=== PATIENT | female | born 1960 | race Caucasian/White ===

== ENCOUNTER 2017-10-25 14:35 | Outpatient (CLI) | payer BC | END 2017-10-25 14:36 | disposition home or self-care (01) | LOC: BICMAMMO 14:35 | PROVIDERS: ATTEND Obstetrics & Gynecology | DX: Z12.31 Encounter for screening mammogram for malignant neoplasm of breast (principal); Z80.3 Family history of malignant neoplasm of breast | CPT/HCPCS: 77063; 77067 ==

== ENCOUNTER 2019-08-08 14:03 | Outpatient (CLI) | payer BC ==
--- NOTE | 2019-08-08 15:05 | BD ---
EXAM: DEXA bone density examination HISTORY: 59-year-old postmenopausal female for screening COMPARISON: None FINDINGS: L1--bone mineral density 1.128 g/sq cm; T score 1.3 L2--bone mineral density 1.317 g/sq cm; T score 2.6 L3--bone mineral density 1.359 g/sq cm; T score 2.5 L4--bone mineral density 1.462 g/sq cm; T score 3.6 Total L1-L4--bone mineral density 1.320 g/sq cm; T score 2.5 Left femoral neck--bone mineral density1.049; T score 1.8 Total proximal left femur--bone mineral density 1.235; T score 2.4 IMPRESSION: Normal bone mineral density.
--- NOTE | 2019-08-08 16:15 | MMO ---
Bilateral MAMMO Bilat Screen [facility]. CLINICAL HISTORY: Patient is 59 years old and is seen for screening. The patient has the following family history of breast cancer: aunt, at age 65. The patient has no personal history of cancer. VIEWS: The views performed were: bilateral craniocaudal with tomosynthesis and bilateral mediolateral oblique with tomosynthesis. FILMS COMPARED: The present examination has been compared to prior imaging studies performed at [facility] on 07/11/2007, and at [facility] on 10/20/2016 and 10/25/2017. This study has been interpreted with the assistance of computer-aided detection. MAMMOGRAM FINDINGS: The breasts are almost entirely fat. There are no suspicious masses, suspicious calcifications, or new areas of architectural distortion. IMPRESSION: THERE IS NO MAMMOGRAPHIC EVIDENCE OF MALIGNANCY. A ROUTINE FOLLOW-UP MAMMOGRAM IN 1 YEAR IS RECOMMENDED. THE RESULTS OF THIS EXAM WERE SENT TO THE PATIENT. ACR BI-RADS Category 1 - Negative MAMMOGRAPHY NOTE: 1. A negative mammogram report should not delay a biopsy if a dominant of clinically suspicious mass is present. 2. Approximately 10% to 15% of breast cancers are not detected by mammography. 3. Adenosis and dense breasts may obscure an underlying neoplasm. Reported by: NORRIS MENDEZ MD Electonically Signed: [id number]
== END 2019-08-08 14:04 | disposition home or self-care (01) ==
LOC: BICMAMMO 14:03
PROVIDERS: ATTEND Obstetrics & Gynecology
DX: Z12.31 Encounter for screening mammogram for malignant neoplasm of breast (principal); Z13.820 Encounter for screening for osteoporosis; M81.0 Age-related osteoporosis without current pathological fracture
CPT/HCPCS: 77063; 77067; 77080

== ENCOUNTER 2021-05-19 08:13 | Outpatient (CLI) | payer BC | END 2021-05-19 08:14 | disposition home or self-care (01) | LOC: BICULT 08:13 | PROVIDERS: ATTEND Nurse Practitioner Family | DX: E04.2 Nontoxic multinodular goiter (principal) | CPT/HCPCS: 76536 ==

== ENCOUNTER 2021-07-16 13:49 | Outpatient (CLI) | payer BC | END 2021-07-16 13:50 | disposition home or self-care (01) | LOC: BICMAMMO 13:49 | PROVIDERS: ATTEND Obstetrics & Gynecology | DX: Z12.31 Encounter for screening mammogram for malignant neoplasm of breast (principal); Z80.3 Family history of malignant neoplasm of breast | CPT/HCPCS: 77063; 77067 ==

== ENCOUNTER 2021-12-30 15:16 | Outpatient (CLI) | payer BC | END 2021-12-30 15:17 | disposition home or self-care (01) | LOC: BICULT 15:16 | PROVIDERS: ATTEND Otolaryngology Otolaryngic Allergy | DX: E04.1 Nontoxic single thyroid nodule (principal) | CPT/HCPCS: 76536 ==

== ENCOUNTER 2023-03-17 07:38 | Outpatient (CLI) | payer BC | END 2023-03-17 07:39 | disposition home or self-care (01) | LOC: BICULT 07:38 | PROVIDERS: ATTEND Otolaryngology Otolaryngic Allergy | DX: Z12.31 Encounter for screening mammogram for malignant neoplasm of breast (principal); E04.1 Nontoxic single thyroid nodule; Z80.3 Family history of malignant neoplasm of breast | CPT/HCPCS: 76536; 77063; 77067 ==

== ENCOUNTER 2024-04-06 07:53 | Outpatient (CLI) | payer BC | END 2024-04-06 07:54 | disposition home or self-care (01) | LOC: BICULT 07:53 | PROVIDERS: ATTEND Otolaryngology Otolaryngic Allergy | DX: E04.2 Nontoxic multinodular goiter (principal) | CPT/HCPCS: 76536 ==